=== PATIENT | female | born 1950 | race Caucasian/White ===

== ENCOUNTER 2016-08-23 12:24 | Emergency (ER) | payer MEDICARE ==
[~2016-08-23] VITALS: Ht 162.6 cm; Wt 77.3 kg
[~2016-08-23 12:24] MED LIST: ATOR20TA PO; CLOP75TA3 PO; Hydrocodone/Acetaminophen PO; INSU100I13 SUBQ; Insulin Lispro SUBQ; METF850T PO
[2016-08-23 12:30] VITALS: BP 181/83; PULSE 83; RESP 16; O2SAT 97
--- NOTE | 2016-08-23 12:54 | ED.REPORT ---
HPI-General Illness Date of Service Aug 23, 2016 ED Provider: Jeanne Patel MD Pt is a 66 year old female w/ a hx of CAD who presents to the ED due to chest pain onset yesterday after having a nuclear medicine stress test. She felt a strange "heaviness" in her chest after receiving the stress test injection and admits that it took her a "long time to recover" from the test. Patient is significantly SOB while talking. She was walking 200 ft from her house earlier today and wasn't able to hold a conversation. She had a stroke 2 years ago. She reports consistent, mild, lower extremity edema. Nursing Notes Stated Complaint: SHORTNESS OF BREATH Chief Complaint: Respiratory Distress Nursing Notes Reviewed: Yes Allergies: Coded Allergies: No Known Allergies (Verified Allergy, Unknown, 08/23/16) pregabalin (Verified Adverse Reaction, Severe, severe swelling of hands and feet, 08/23/16) lisinopril (Verified Adverse Reaction, Mild, cough, 08/23/16) Scheduled ([Insulin Lispro]) 100 UNIT/ML INJ 0 UNIT SUBQ WMHS Sliding scale insulin as needed prior to each meal and at bedtime- used algorithm provided by nurses Atorvastatin (Lipitor) 20 Mg Tablet 40 MG PO HS Clopidogrel Bisulfate (Plavix) 75 Mg Tablet 75 MG PO DAILY Insulin Glargine (Lantus U100 Solostar Insulin Pen) 100 Unit/Ml Inj 10 UNIT SUBQ HS Metformin (Glucophage) 850 Mg Tablet 850 MG PO BIDWM Scheduled PRN ([Hydrocodone/Acetaminophen]) 1 TAB TABLET 1-2 TAB PO Q4H PRN PRN For Moderate Pain General Time Seen by MD: 12:54 Chief Complaint Chest pain Hx Obtained From: Patient Arrived By: Walk-in Sudden in Onset?: Yes Onset Occurred: 5 - 8 hours ago Symptom Duration: Since onset Location: : Chest Quality: Pressure Radiation: : Does not radiate Severity: Current: No pain currently Recent Healthcare: Recent doctor visit Similar Sx Previous: Yes Past Medical History Past Medical History Notes: Dr. Schmidt Past Medical History Nerve plexitis Reports: Coronary artery disease, Diabetes mellitus, Hyperlipidemia, Hypertension Past Surgical History Reports: Cataract surgery Social History Other Social History: Good social support, Local resident Ambulatory Status Independent Review of Systems Full Review of Systems Respiratory: Reports: Shortness of breath Cardiovascular: Reports: Chest pain Complete sys rev & neg: except as marked. Physical Exam Vital Signs Vital Signs Date Time Temp Pulse Resp B/P Pulse Ox O2 Delivery O2 Flow Rate FiO2 08/23/16 14:13 62 29 156/70 92 Room Air 08/23/16 12:30 36.2 83 16 181/83 97 Room Air Initial VS: Reviewed General/Constitutional: Well-developed, Well-nourished Head / Eyes: Atraumatic, Normocephalic, PERRL ENT: Mucous membranes moist, Conjunctiva normal, No scleral icterus Neck: Supple, Non-tender, Full range of motion Skin: Warm, Dry, No cyanosis Neurologic: Alert, Oriented, Nonfocal Psychiatric: Mood/affect normal, Behavior normal, Normal thought content Respiratory / Chest: Breath sounds NL, No wheezing significantly dyspneic while talking SAT 02 97% Cardiovascular: Heart rate NL, Regular rhythm, Heart sounds NL, No gallop, No murmurs, No rubs Lower Ext Edema: Positive: Bilateral 1+ Abdomen: Atraumatic, Soft, Non-tender, No guarding, No rebound, BS normoactive Interpretation & Diagnostics Lab Results Interpretation Result Diagram: 08/23/16 1315 08/23/16 1315 Test 08/23/16 13:15 08/23/16 15:46 White Blood Count 9.0th/mm3 (3.8-10.1) Red Blood Count 4.25mil/mm3 (3.90-5.20) Hemoglobin 12.2g/dL (12.0-15.6) Hematocrit 37.1% (35.0-46.0) Mean Corpuscular Volume 87.3fL (81-100) Mean Corpuscular Hemoglobin 28.7pg (27.0-35.0) Mean Corpuscular Hemoglobin Concent 32.9% (32.0-37.0) Red Cell Distribution Width 13.5% (12.3-15.4) Platelet Count 242bil/L (150-400) Neutrophils (%) (Auto) 75.7% (40-74) Lymphocytes (%) (Auto) 18.2% (14-46) Monocytes (%) (Auto) 4.2% (4-12) Eosinophils (%) (Auto) 1.6% (0-5) Basophils (%) (Auto) 0.2% (0-3) Sodium Level 143mEq/L (134-144) Potassium Level 4.1mEq/L (3.5-5.2) Chloride Level 103mEq/L (97-108) Carbon Dioxide Level 26mmol/L (18-29) Blood Urea Nitrogen 17mg/dL (8-27) Creatinine 0.74mg/dL (0.57-1.00) Estimat Glomerular Filtration Rate 113mL/min (>59) Glucose Level 166mg/dL (60-99) Calcium Level 9.0mg/dL (8.5-10.1) Magnesium Level 2.2mg/dL (1.6-2.6) Total Bilirubin 0.9mg/dL (0.0-1.2) Aspartate Amino Transf (AST/SGOT) 14U/L (0-50) Alanine Aminotransferase (ALT/SGPT) 15U/L (0-32) Alkaline Phosphatase 73U/L (25-165) Troponin T < 0.010ug/L (0.0-0.011) Pro-B-Type Natriuretic Peptide 1430pg/mL (0-287) Total Protein 6.9g/dL (6.4-8.4) Albumin 4.1g/dL (3.4-5.0) Hold Urine Received (Received) Lab Results Interpretation: pharmacologic stress test: IMPRESSION: Abnormal perfusion study, consistent with prior infarction and mild mikala-infarct ischemia 1) Abnormal perfusion images, consistent with prior infarction in the inferior wall with no significant ischemia and prior infarction in the lateral wall with mild ischemia in the distal lateral wall. 2) Basal to mid inferior wall and basal to mid lateral wall are hypokinetic. 3) Normal left ventricular size and systolic function (EF 64%). 4) Mild evidence of ischemia on ECG with lexiscan. 5) No angina or angina equivalent symptoms with lexiscan. 6) No prior nuclear stress test available for comparison. Dictated by: Hernan Mansfield M.D. on 08/15/2016 at 17:05 ECG Interpretation Time: 12:43 Interpreted by: ED physician Normal ECG Interpretation: Normal sinus rhythm (84) X-Ray Chest Interpretation Chest Xray Interpretation: IMPRESSION: Mild pulmonary edema with reduced inspiration. Size is at the upper limits of normal. Dictated by: Gilmer Chan M.D. on 08/23/2016 at 13:09 Approved by: Gilmer Chan M.D. on 08/23/2016 at 13:12 View: Portable Interpretation / Wet Read by: Interpret - Radiologist Re-Eval/Medical Decision Med Decision/Clinical Course Ongoing symptoms for 24 hours with clinical picture most consistent with heart failure and a negative troponin. Stress test from yesterday is reviewed low risk study. Case briefly reviewed with Dr. Walker who agrees with outpatient management presumed mild volume overload. Patient has follow-up appointment on Friday. Discharged home with Lasix will likely need potassium and BMP collected on Friday Time of Eval: 14:15 Patient Status: Condition improved, Complete relief Re-Evaluation/Progress Note: Chest pain completely gone after 2 nitro. Time of Eval: 16:03 Patient Status: Condition improved Re-Evaluation/Progress Note: feeling much better. plan, labs and when to return reviewed. questions answered Counseled Regarding: Diagnosis, Lab results, Need for follow-up, When/why to return to ED Discharge & Departure Primary Impression: Acute congestive heart failure Additional Impressions: Dyspnea Chest pain Disposition: Home Discharge Condition All VS Reviewed: Yes Condition: Stable Additional Instructions: Clinical symptoms, medical exam, x-ray, and lab work as suggest you have mild heart failure with a bit of fluid overload causing your dyspnea. With symptoms ongoing for 24 hours and a negative troponin, the chances of your dyspnea being due to ischemic heart issues is minimal You were given 40 mg of IV Lasix in the emergency department I am going to send you home with a prescription for 20 mg of Lasix to be taken daily over the weekend and on Friday. I reviewed your visit today, as well as pharmacologic stress test, with Dr. Ruiz, the soccer referee project controller. Please keep your appointment with Dr. Mansfield on Friday to follow up on all of these issues Thank you for letting me help today. If you are getting worse, please come back to the ER. Good luck! Referrals: Lindsey Galaviz MD (PCP) Claudia Attestation Portion of this note were transcribed by Bob Acuna. I, Dr. Patel, personally performed the history, physical exam, and medical decision-making: I reviewed and confirmed the accuracy for the information in the transcribed note. Signed by: claudia Conway, 08/23/16 1500 copies to: Hernan Mansfield MD; Lindsey Galaviz MD, Shawna L MD Aug 23, 2016 12:54 BOB ACUNA Aug 23, 2016 13:05
[2016-08-23 13:00] VITALS: BP 171/76; PULSE 82; RESP 14; O2SAT 96
--- NOTE | 2016-08-23 13:13 | DRSVH ---
PROCEDURE: X-RAY CHEST ONE VIEW, PORTABLE ([id number]) INDICATIONS: dyspnea TECHNIQUE: One view of the chest was acquired. COMPARISON: [facility], , CHEST 1VW (PORTABLE), 01/12/2015, 15:53. FINDINGS: Surgical changes and devices: None. Lungs and pleura: No pleural effusions or pneumothorax. Lungs are abnormal with reduced inspiration mild pulmonary edema pattern. Mediastinum: Mediastinal contours appear normal. Heart size is normal. Bones and chest wall: No suspicious bony lesions. Overlying soft tissues appear unremarkable. IMPRESSION: Mild pulmonary edema with reduced inspiration. Size is at the upper limits of normal. Dictated by: Gilmer hCan M.D. on 08/23/2016 at 13:09 Approved by: Gilmer Chan M.D. on 08/23/2016 at 13:12
[2016-08-23 13:31] LABS: BASOPHILS % (AUTO) 0.2 % (0-3); EOSINOPHILS % (AUTO) 1.6 % (0-5); MONOCYTES % (AUTO) 4.2 % (4-12); Mean Corpuscular Hemoglobin 28.7 pg (27.0-35.0); Mean Corpuscular Volume 87.3 fL (81-100); NEUTROPHILS % (AUTO) 75.7 % (40-74); Platelet Count 242 bil/L (150-400)
[2016-08-23 13:54] LABS: TROPONIN T < 0.010 ug/L (0.0-0.011)
[2016-08-23 14:04] LABS: Magnesium 2.2 mg/dL (1.6-2.6)
[2016-08-23 14:13] VITALS: BP 156/70; PULSE 62; RESP 29; O2SAT 92
[2016-08-23 15:00] VITALS: BP 170/78; PULSE 85; RESP 12; RESP 23; O2SAT 98
[2016-08-23] MEDS ORDERED: Furosemide 10 mg/mL 4 mL Inj IVPUSH ONE (15:45)
[2016-08-23] MEDS ORDERED: FUR20 PO (16:05)
[2016-08-23 16:15] VITALS: BP 165/77; PULSE 88; RESP 20; O2SAT 94
[2016-08-23 16:28] VITALS: BP 165/77; PULSE 88; RESP 20; O2SAT 94
[2016-09-04] MEDS ORDERED: LOSA100T29 PO (17:54)
[2016-09-04] MEDS ORDERED: BACI1CAP6 PO (17:54)
[2016-09-04] MEDS ORDERED: ROSU40TA20 PO (17:54)
[2016-09-04] MEDS ORDERED: CHOL10008 PO (17:54)
[2016-09-04] MEDS ORDERED: DULO30CA50 PO (17:54)
[2016-09-05] MEDS ORDERED: FUR20 PO (12:31)
== END 2016-08-23 16:28 | disposition home or self-care (01) ==
LOC: SED 12:24
DX: I11.0 Hypertensive heart disease with heart failure (principal); I50.9 Heart failure, unspecified; I25.10 Atherosclerotic heart disease of native coronary artery without angina pectoris; E11.9 Type 2 diabetes mellitus without complications; E78.5 Hyperlipidemia, unspecified; Z79.4 Long term (current) use of insulin; Z79.84 Long term (current) use of oral hypoglycemic drugs; Z88.8 Allergy status to other drugs, medicaments and biological substances
CPT/HCPCS: 36415; 71010; 80053; 83735; 83880; 84484; 85025; 93005; 96374; 99285; J1940

== ENCOUNTER 2016-09-16 06:34 | Day surgery (SDC) | payer MEDICARE ==
[2016-09-16] VITALS (12 sets, daily range): BP systolic 129–151; BP diastolic 57–69; PULSE 68–78; RESP 15–17; O2SAT 96–98
[~2016-09-16] VITALS: Ht 162.6 cm; Wt 80.3 kg
[~2016-09-16 06:34] MED LIST changes: -ATOR20TA PO; +BACI1CAP6 PO; +CHOL10008 PO; +FUR20 PO; -Hydrocodone/Acetaminophen PO; -Insulin Lispro SUBQ; +LOSA100T29 PO; -METF850T PO; +ROSU40TA20 PO
[2016-09-16] MEDS ORDERED: 0.9% Sodium Chloride 1,000 ML ONE ×2 (08:21→11:16)
--- NOTE | 2016-09-16 08:54 | NUR ---
Admitted through [facility] today for a diagnostic peripheral study in candlemaking laborer today by Dr Jasmine. Pt has had claudicating type symptoms especially in the left leg. Left leg DP pulse is found by Doppler only. Pt understands plan of care for today's procedure.
[2016-09-16] MEDS ORDERED: Heparin 1,000 Unit/mL 10 mL Inj ONE ×3 (11:16→12:04)
[2016-09-16] MEDS ORDERED: fentaNYL-PF 50 mCg/mL 2 mL Inj ONE (11:41)
--- NOTE | 2016-09-16 13:43 | NUR ---
Returned to [facility] from the diagnostic peripheral laborer tan house procedure at 1215. BR for 4 hours - plan for discharge by 1645. Right access site manual hold soft and non-tender. Plan is for follow up with Dr Jasmine and lab work. Dr Jasmine plan to return and speak with patient prior to D/C home.
--- NOTE | 2016-09-16 16:47 | NUR ---
Recovery completed in [facility] post peripheral arteriogram. Right femoral arterial puncture is soft and non-tender. Pt will return mid September for planned intervention. Pt was instructed on home care post peripheral arteriogram and brief overview of the procedure scheduled for Mid-September. Pt will be seeing Dr Jasmine prior to returning to [facility] for peripheral intervention.
--- NOTE | 2016-09-16 19:31 | DI96 ---
[address] [address] PERIPHERAL CATHETERIZATION/INTERVENTION REPORT PATIENT: STIVEN FOURNIER : 1950 MR#: [id number] ADMIT: 09/16/2016 JOB ID: [id number] PATIENT PROFILE: The patient is a 66-year-old lady with history of diabetes, hypertension, and hypercholesterolemia. She has claudication of the lower extremities. PROCEDURE: 1. Conscious sedation for 15 minutes. 2. Vascular access from the right groin. 3. Pelvic angiogram with distal runoff. COMPLICATIONS: None. RESULTS: Conscious sedation was achieved with IV Versed and IV fentanyl. Vascular access was obtained from the right groin under 1% lidocaine local using a 4-Kyrgyz sheath. A 4-Kyrgyz pigtail catheter was advanced to the lower abdominal aorta and pelvic angiogram with distal runoff was performed in the AP view by injecting contrast at the rate of 12 cc/second for 8 seconds. This catheter was withdrawn. Upon sheath removal, hemostasis was achieved by manual compression. The patient tolerated procedure well. She was transferred to [facility] in good condition. TOTAL CONTRAST USED: 96 cc. FLUOROSCOPY TIME: 0.5 minutes. RESULTS: 1. The distal abdominal aorta is normal. 2. Bilateral common iliac arteries have minimal disease. Bilateral external iliac arteries are normal. 3. Bilateral common femoral arteries have minimal disease. 4. The right superficial femoral artery has 70% stenosis in the distal portion. The proximal two-thirds are normal. 5. The left superficial femoral artery is normal in the proximal two-thirds and has 30% stenosis in the distal portion. 6. The right popliteal artery has 60% stenosis. 7. The right anterior tibial artery has 90% stenosis at its origin and long 95% stenosis in the mid portion. The right tibioperoneal trunk has 95% stenosis. The right peroneal artery is normal. The right posterior tibial artery has a focal 70% stenosis in the mid portion. 8. The left popliteal artery has 60% stenosis. The left anterior tibial artery is occluded in the proximal portion with bridging collaterals. The left tibioperoneal trunk has 70% stenosis. The left posterior tibial and peroneal artery have minor irregularity. CONCLUSION: 1. Severe distal right superficial femoral artery stenosis. 2. Severe stenosis of the right anterior tibial artery and right tibioperoneal trunk. 3. Moderate to severe stenosis of the left tibioperoneal trunk with three-vessel runoff to both ankles. MTDD
== END 2016-09-16 23:59 | disposition home or self-care (01) ==
LOC: SOUO 06:34
PROVIDERS: ATTEND Internal Medicine Interventional Cardiology
DX: I70.213 Atherosclerosis of native arteries of extremities with intermittent claudication, bilateral legs (principal); E11.9 Type 2 diabetes mellitus without complications; I10 Essential (primary) hypertension; E78.5 Hyperlipidemia, unspecified; I25.9 Chronic ischemic heart disease, unspecified; E78.4 Other hyperlipidemia; I50.30 Unspecified diastolic (congestive) heart failure; Z86.73 Personal history of transient ischemic attack (TIA), and cerebral infarction without residual deficits; Z79.02 Long term (current) use of antithrombotics/antiplatelets; Z79.4 Long term (current) use of insulin
CPT/HCPCS: 36200; 75716; 99152; C1769; J1644; J2250; J3010; J7030; Q9967